=== PATIENT | male | born 1975 | race Hispanic/Latino ===

== ENCOUNTER 2024-03-12 08:20 | Day surgery (SDC) | payer OTHER ==
[~2024-03-12] VITALS: Ht 167.6 cm; Wt 105.2 kg
[~2024-03-12 08:20] MED LIST: IBUPROFEN200 MG PO; NAPROXEN500 MG PO; OMEPRAZOLE DR40 MG PO
[2024-03-12] MEDS ORDERED: FAMOTIDINE 10MG/ML 2ML SDV IV ONE (08:24)
[2024-03-12] MEDS ORDERED: LACTATED RINGER'S 1,000 ML IV ONE (08:24)
[2024-03-12 10:21] VITALS: BP 126/87
[2024-03-12] MEDS ORDERED: GLYCOPYRROLATE 0.2 MG/ML IV ONE (11:30)
[2024-03-12] MEDS ORDERED: LIDOCAINE HCL 2% 2ML SDV IV ONE (11:30)
[2024-03-12] MEDS ORDERED: PROPOFOL 200 MG/20 ML VIAL IV ONE (11:30)
== END 2024-03-12 10:28 | disposition home or self-care (01) | DRG 392 ==
LOC: ENDO 08:20
PROVIDERS: ATTEND Internal Medicine Gastroenterology
PROC: 0DB48ZX Excision of Esophagogastric Junction, Via Natural or Artificial Opening Endoscopic, Diagnostic (ICD-10-PCS; principal; 2024-03-12)
PROC: 0DB78ZX Excision of Stomach, Pylorus, Via Natural or Artificial Opening Endoscopic, Diagnostic (ICD-10-PCS; 2024-03-12)
DX: K29.70 Gastritis, unspecified, without bleeding (principal); B96.81 Helicobacter pylori [H. pylori] as the cause of diseases classified elsewhere